=== PATIENT | male | born 1975 | race Caucasian/White ===

== ENCOUNTER 2024-12-13 06:07 | Day surgery (SDC) | payer BC, SELFPAY ==
[2024-12-13] VITALS (9 sets, daily range): BP systolic 134–169; BP diastolic 82–92; BMI 26.4
[2024-12-13] MEDS: TYLENOL 1000 MG PO (06:27)
[2024-12-13] MEDS: NORMOSOL-R/PLASMALYTE-A 1000 IV (06:28)
--- NOTE | 2024-12-13 06:40 | HP.FOC2 ---
Focused History & Physical
Chief Complaint
HPI:
Chief Complaint: Umbilical hernia, right inguinal hernia
HPI / Indication for Planned Procedure: Patient is a 49-year-old male recently seen in outpatient surgical evaluation with a longstanding history of a known right inguinal hernia that he has been following expectantly. It has slowly been increasing
in size. Awareness of the hernia being present and occasional discomfort with strenuous exercise. Hernia remains reducible.
Relevant Past Medical History: Negative
Relevant Social History: Negative
Relevant Family History: Negative
Relevant Past Surgical History: Positive for (Left inguinal hernia repair x 3)
Review of Systems
Review of Pertinent Systems: All Systems Negative
Medication
See Medication form for detailed medications: Yes
Medication List (including Herbals & OTC):
No Meds [No Current Medications] 12/06/24
Medications Reviewed: Yes
Allergies and Reactions
Patient has Allergies: No
Noted Allergies and Reactions:
Allergy/AdvReac Type Severity Reaction Status Date / Time
No Known Allergies Allergy Verified 12/13/24 06:16
Pertinent Physical Exam
All Other Systems: Negative
Head/Neck: Normal
Lungs: Normal
Heart: Normal
Abdomen: Other (Reducible right inguinal hernia. Reducible umbilical hernia)
Extremities: Normal
Neurological: Normal
Diagnosis / Assessment
49-year-old male presenting for scheduled operative correction right inguinal and umbilical hernia
Plan / Procedure
Robotic assisted laparoscopic repair right inguinal hernia with mesh. Open umbilical hernia pair with mesh.
Anesthesia/Sedation to be done by Anesthesia Provider: Yes
--- NOTE | 2024-12-13 06:42 | W.SUR.PREOP ---
Pre-Operative Surgical Note
-
I have examined this patient prior to the performance of the scheduled procedure.
The patient's condition is unchanged from the time of the current History and
Physical and the patient is able to undergo the scheduled procedure.
--- NOTE | 2024-12-13 09:11 | W.IMMPOSTOP ---
Addendum entered and electronically signed by Gold Gu MD 12/13/24 09:26:
#[id number]
Original Note:
Surgical Immed Post Op Note
-
Primary Surgeon: Riccardo
Assisting Surgeon: Jayesh GOODEN
Pre-op Diagnosis: UH; RIH
Post-op Diagnosis: UH 1cm; RIH - indirect
Procedure Performed: Open primary umbilical hernia repair. Robotic assisted laparoscopic NAHOMY repair right inguinal hernias mesh; 3D max large mid weight
Anesthesia Type: GETA +0.25% Marcaine with epi
Specimen / Cultures: None
Estimated Blood Loss: 6 mL
Complications: None immediate
Operative Findings: Umbilical hernia, 1 cm fascial defect. Primary closure with 0 PDS suture. Right inguinal hernia, indirect. Direct and femoral space normal. 3D max large mid weight mesh repair secured to Chano's ligament with 2-0 Vicryl.
Scarring in the left inguinal space from previous inguinal herniorrhaphy with some filmy adhesions. No visible recurrence. No additional notable intra-abdominal findings.
Patient's updated postoperatively
== END 2024-12-13 10:58 | disposition home or self-care (01) ==
LOC: SDS 06:07
PROVIDERS: ATTENDING PHYSICIAN Surgery
DX: K40.90 Unilateral inguinal hernia, without obstruction or gangrene, not specified as recurrent (principal); K42.9 Umbilical hernia without obstruction or gangrene
CPT/HCPCS: 49650; 49591; C1781